=== PATIENT | male | born 1995 | race Caucasian/White ===

== ENCOUNTER 2020-01-20 21:45 | Emergency (ER) | payer MEDICAID, OTHER ==
[~2020-01-20] VITALS: Ht 182.9 cm; Wt 85.0 kg
[2020-01-20] MEDS ORDERED: LIDOCAINE HCL 1% 20ML VIAL (Pyxis) INJ INFIL ONE (22:45)
[2020-01-20 23:46] VITALS: BP 124/82
== END 2020-01-20 23:50 | disposition home or self-care (01) ==
LOC: ER 21:45
DX: S61.411A Laceration without foreign body of right hand, initial encounter (principal); V18.0XXA Pedal cycle driver injured in noncollision transport accident in nontraffic accident, initial encounter; Y93.55 Activity, bike riding; Y92.488 Other paved roadways as the place of occurrence of the external cause
CPT/HCPCS: 12002; 99282; J3490